=== PATIENT | male | born 2005 | race Caucasian/White ===

== ENCOUNTER 2024-09-18 15:39 | Inpatient (IN) | payer MEDICAID ==
[~2024-09-18] VITALS: Ht 172.7 cm; Wt 56.5 kg
[2024-09-18 17:16] VITALS: BP 128/85; PULSE 82; RESP 16; TEMP 98.1; O2SAT 97
[2024-09-18 17:18] VITALS: RESP 16
[2024-09-18 18:00] VITALS: BP 130/81; PULSE 73; RESP 16; TEMP 98; O2SAT 98
[2024-09-18] MEDS ORDERED: acetaminophen 325mg tablet PO PRN ×2 (19:15)
[2024-09-18] MEDS ORDERED: magnesium sulf-water 4G/100mL 100 ML IV PRN (19:15)
[2024-09-18] MEDS ORDERED: magnesium Cl slow-release 64mg tablet PO PRN (19:15)
[2024-09-18] MEDS ORDERED: potassium Cl 40MEQ/1/2NS 520ml 520 ML IV PRN (19:15)
[2024-09-18] MEDS ORDERED: potassium Cl 20 mEq SR tablet PO PRN ×2 (19:15)
[2024-09-18] MEDS: normal saline 1000ml 1,000 ML IV SCH (19:15)
[2024-09-18] MEDS ORDERED: magnesium sulf-water 2g/50mL 50 ML IV PRN (19:15)
[2024-09-18] MEDS ORDERED: mag hydrox/Alum hydrox/simeth 30ml oral suspension PO PRN (19:15)
[2024-09-18 20:00] VITALS: RESP 16; O2SAT 98
[2024-09-18] MEDS: K and/or MAG REPLACEMENT MC SCH (20:00)
[2024-09-18] MEDS ORDERED: CLON0.2T PO (20:28)
[2024-09-18] MEDS ORDERED: LISD30CA2 PO (20:28)
[2024-09-18] MEDS ORDERED: FLUO10CA28 PO (20:28)
[2024-09-18] MEDS ORDERED: HYDR-3717 PO (20:28)
--- NOTE | 2024-09-18 20:32 | HISTORY AND PHYSICAL-Residence ---
History & Physical Providers to CC Resident Creating Document: DINESH MCDONALD RES ~ History of Present Illness Reason for Admit\Complaint: Abdominal pain History of Present Illness 19 years old male with history of ADHD developmental delay anxiety transferred from [facility] to our hospital suspect of of choledocholithiasis. Patient reported had intermittent abdominal pain within last two months, pain became constant and severe about two nights ago, when he visit [facility]. As the package note from [facility] patient had right upper quadrant abdominal pain the severity was 10/10, sharp nonradiating. Patient also reported associated nausea but denied any fever. During hospitalization patient reported 2 times vomiting which was nonbloody and content food. Denied any constipation diarrhea, changing in urinary habits. Allergies: Uncoded Allergies: Strawberries (Allergy, Severe, 09/18/24) ANAPHYLAXIS: REQUIRES EPI PEN NKDA (Allergy, Unknown, 09/18/24) Past Medical History Past Medical History ADHD Developmental delay Anxiety disorder Past Surgical History Surgical History Comment Noncontributory Family History Family History: Patient reports no known family medical history. Past Social History Smoking: Other (Patient used to vape, quit about eight months ago) Alcohol Use: None Drug Use: None ROS ROS The history of present illness included a review of system, which yielded relevant positives and negatives Exam Vitals: Vital Signs Date Time Temp Pulse Resp B/P (MAP) Pulse Ox O2 Delivery O2 Flow Rate FiO2 09/18/24 17:18 16 Room Air 09/18/24 17:16 98.1 82 128/85 (99) 97 General: General: Awake and Alert, no acute distress. HEENT: Conjunctiva pink, Sclera mildly icteric, Mucus Membranes moist. Neck: Supple without masses and tenderness. Resp: Lungs clear to auscultation bilaterally. Heart: Regular Rate and rhythm, normal S1 and S2 without murmur, rub or gallop. Abdomen: Soft and non tender no organomegaly Extremities: No cyanosis,clubbing or edema. Skin: Warm and Dry. Neurological: Speech is clear, alert, and oriented x 4, no gross neurological deficits Advance Care Planning Advanced Care plannin - 30 Minutes Additional Plan 19 years old male with history of anxiety developmental delay and ADHD transferred from [facility] due to abdominal pain and suspect of choledocholithiasis Suspect of of choledocholithiasis Intermittent abdominal pain which has been getting worse withing last two days Ultrasound of the abdomen from [facility] showed: Finding The common bile duct measured 5.3 mm. Small shadowing echogenic foci are seen in the CBD. Gal lbladder small. Gallbladder wall measures 3.5. No pre cholecystic fluid. Impression: Gallbladder microlithiasis, associated with marginal mural thickness thickening. Coledocholelithiasis. No biliary ductal dilation. CT scan with IV contrast from [facility]: Moderate intrahepatic periportal edema which could be seen with hepatitis, cholangitis, cardiac decompensation. Mild gallbladder wall thickening which may be reactive to and inflamed liver. Non calcified gallstone with acute cholecystitis can not be excluded. No evidence for obstructive uropathy or urinary tract calculi. Normal appendix. Intact gastrointestinal tract Labs from [facility] showed: No leukocytosis WBC 7.6, bilirubin 1.38, ALT 55, AST 75, alkaline phosphatase 78 However Repeated labs in our hospital showed bilirubin 7.5, AST 174, ALT 572, alkaline phosphatase 152 IV fluid 100 mL/hour started, MRCP ordered, Dr. Arciniega on-call surgeon is informed. Other comorbidities ADHD, anxiety disorder developmental delay we will continue home medication as directed Code Status: Full DVT prophylaxis: SCDs Analgesia/sedation: Tylenol, Line/tube: Peripheral GI prophylaxis: None Nutrition: NPO after midnight Prognosis: Fair Disposition: Continue monitoring patient in surgical floor, NPO after midnight Dinesh Mcdonald MD Internal Medicine Resident Date of Service: September 18, 2024 Billing Provider: MCKAY FLORES MD, ELAHE, RES September 18, 2024 20:32
[2024-09-18] MEDS: ondansetron/PF 4mg/2ml inj IV PRN (21:06)
[2024-09-18] MEDS: docusate sod 100mg capsule PO SCH (22:08)
[2024-09-18] MEDS: hydrOXYzine 10 MG tablet PO SCH (22:08)
[2024-09-18] MEDS: cloNIDine 0.1 mg tablet PO SCH (22:08)
[2024-09-18 22:39] LABS: BASOPHILS % (AUTO) 0.6 % (0-1); EOSINOPHILS % (AUTO) 0.4 % (0-6); HEMATOCRIT 46.6 % (42.0-52.0); HEMOGLOBIN 15.9 g/dl (14.0-17.9); LYMPHOCYTES # (AUTO) 0.6 X10'3 (1.1-4.8); LYMPHOCYTES % (AUTO) 8.4 % (21-51); MEAN CORPUSCULAR HEMOGLOBIN 29.1 PG (27.0-31.0); MEAN CORPUSCULAR HGB CONC 34.1 g/dL (33.0-36.5); MEAN CORPUSCULAR VOLUME 85.3 FL (78-98); MEAN PLATELET VOLUME 7.8 FL (7.4-10.4); MONOCYTES # (AUTO) 0.3 X10'3 (0-0.9); MONOCYTES % (AUTO) 3.9 % (2-12); NEUTROPHILS # (AUTO) 6.2 X10'3 (1.8-7.7); NEUTROPHILS % (AUTO) 86.7 % (42-75); PLATELET COUNT 283 X10'3 (140-440); RED BLOOD COUNT 5.46 X10'6 (4.70-6.10); RED CELL DISTRIBUTION WIDTH 13.6 % (11.5-14.5); WHITE BLOOD COUNT 7.1 X10'3 (4.5-11.0)
[2024-09-18 22:56] LABS: ALANINE AMINOTRANSFERASE 572 U/L (12-78); ALBUMIN 4.2 G/DL (3.4-5.0); ALKALINE PHOSPHATASE 152 IU/L (20-180); ANION GAP 7 (8-16); ASPARTATE AMINO TRANSFERASE 174 U/L (10-37); BILIRUBIN,TOTAL 7.5 MG/DL (0.1-1.0); BLOOD UREA NITROGEN 4 MG/DL (7-18); BUN/CREATININE RATIO 4.7 (10.0-20.0); CALCIUM 8.7 MG/DL (8.5-10.1); CHLORIDE 102 MMOL/L (99-107); CREATININE 0.85 MG/DL (0.60-1.10); GLUCOSE 116 MG/DL (70-104); POTASSIUM 3.5 MMOL/L (3.5-5.1); SODIUM 140 MMOL/L (135-145); TOTAL CARBON DIOXIDE 30.7 MMOL/L (24-32); eCRCL 111 ML/MIN; eGFR > 90 ML/MIN
[2024-09-18 22:57] LABS: APTT 29 SECONDS (22-32); INR 1.2 INR; PROTHROMBIN TIME 11.8 SECONDS (9.0-12.0)
[2024-09-18 23:00] VITALS: BP 120/76; PULSE 76; RESP 16; TEMP 97.9; O2SAT 99
[2024-09-18 23:02] LABS: AMYLASE 52 U/L (25-115); LIPASE 30 U/L (16-77); MAGNESIUM 2.2 MG/DL (1.5-2.4); PRO BRAIN NATRIURETIC PEPTIDE 217 PG/ML (0-125)
[2024-09-18 23:05] LABS: ALBUMIN/GLOBULIN RATIO 1.2 (1.1-1.5); TOTAL PROTEIN 7.6 G/DL (6.4-8.2)
[2024-09-19 06:00] VITALS: BP 110/63; PULSE 56; RESP 16; TEMP 97.6; O2SAT 100
[2024-09-19 06:18] LABS: BASOPHILS % (AUTO) 0.4 % (0-1); EOSINOPHILS # (AUTO) 0.1 X10'3 (0-0.9); EOSINOPHILS % (AUTO) 1.4 % (0-6); HEMATOCRIT 39.5 % (42.0-52.0); HEMOGLOBIN 13.7 g/dl (14.0-17.9); LYMPHOCYTES # (AUTO) 1.3 X10'3 (1.1-4.8); MEAN CORPUSCULAR HEMOGLOBIN 29.4 PG (27.0-31.0); MEAN CORPUSCULAR HGB CONC 34.7 g/dL (33.0-36.5); MEAN CORPUSCULAR VOLUME 84.7 FL (78-98); MEAN PLATELET VOLUME 7.9 FL (7.4-10.4); MONOCYTES # (AUTO) 0.5 X10'3 (0-0.9); MONOCYTES % (AUTO) 7.5 % (2-12); NEUTROPHILS # (AUTO) 4.7 X10'3 (1.8-7.7); NEUTROPHILS % (AUTO) 71.7 % (42-75); PLATELET COUNT 247 X10'3 (140-440); RED BLOOD COUNT 4.66 X10'6 (4.70-6.10); RED CELL DISTRIBUTION WIDTH 13.5 % (11.5-14.5); WHITE BLOOD COUNT 6.6 X10'3 (4.5-11.0)
[2024-09-19 06:28] LABS: ALANINE AMINOTRANSFERASE 403 U/L (12-78); ALBUMIN 3.2 G/DL (3.4-5.0); ALKALINE PHOSPHATASE 119 IU/L (20-180); ANION GAP 4 (8-16); ASPARTATE AMINO TRANSFERASE 114 U/L (10-37); BILIRUBIN,TOTAL 5.5 MG/DL (0.1-1.0); BLOOD UREA NITROGEN 4 MG/DL (7-18); BUN/CREATININE RATIO 3.7 (10.0-20.0); CALCIUM 8.6 MG/DL (8.5-10.1); CHLORIDE 106 MMOL/L (99-107); CREATININE 1.07 MG/DL (0.60-1.10); GLUCOSE 97 MG/DL (70-104); POTASSIUM 3.8 MMOL/L (3.5-5.1); SODIUM 140 MMOL/L (135-145); eCRCL 88 ML/MIN; eGFR 88 ML/MIN
[2024-09-19 06:32] LABS: ALBUMIN/GLOBULIN RATIO 1.2 (1.1-1.5); TOTAL PROTEIN 5.8 G/DL (6.4-8.2)
[2024-09-19 06:38] LABS: BILIRUBIN,URINE MODERATE (Neg); CLARITY,URINE CLEAR (Clear); COLOR,URINE AMBER (Yellow); GLUCOSE, URINE 100 mg/dl (Neg); KETONES,URINE 40 mg/dl (Neg); LEUKOCYTE ESTERASE ,URINE NEGATIVE (Neg); NITRITES, URINE NEGATIVE (Neg); OCCULT BLOOD,URINE NEGATIVE (Neg); PROTEIN,URINE NEGATIVE (Neg)
[2024-09-19 06:44] LABS: UA COLLECTION TYPE CLN CATCH MIDSTREAM
[2024-09-19] MEDS: FLUoxetine 10mg capsule PO SCH (08:11)
[2024-09-19] MEDS: lisdexamfetamine dimesylate 10mg capsule PO SCH (08:11)
--- NOTE | 2024-09-19 10:23 | PROGRESS NOTE ---
Progress Note Dictate Providers to CC CC: BESSIE SEWELL MD ~ Progress Note: Patient transferred here from [facility] with suspected choledocholithiasis Significant increase in bilirubin on admission greater than 7.0 Decrease this morning Transaminitis Normal alkaline phosphatase Ultrasound suspicious for possible shadowing in the common bile duct Patient jaundiced Awaiting MRCP Full consult to follow Antibiotic Ordered?: N/A Objective Vitals Vital Signs Date Time Temp Pulse Resp B/P (MAP) Pulse Ox O2 Delivery O2 Flow Rate FiO2 09/19/24 06:00 97.6 56 16 110/63 (79) 100 Room Air Lab Results: 09/19/24 0528 09/19/24 0528 Coagulation Studies Laboratory Tests Test 09/18/24 22:20 Prothrombin Time 11.8 SECONDS (9.0-12.0) INR International Normalized Ratio 1.2 INR Activated Partial Thromboplast Time 29 SECONDS (22-32) Coagulation Comments BESSIE SEWELL MD Sep 19, 2024 10:23
[2024-09-19] MEDS: piperacillin/tazo 3.375gm/50ml 50 ML IV SCH (10:35)
[2024-09-19 11:00] VITALS: BP 126/76; PULSE 67; RESP 16; TEMP 98.3; O2SAT 96
--- NOTE | 2024-09-19 11:38 | PROGRESS NOTE ---
Daily Progress Note Providers to CC ~ Antibiotic Timeout Antibiotic Ordered?: Yes Subjective No acute events overnight. Patient examined at bedside. No new complaints, not in acute distress. Patient reports upper quadrant abdominal pain. No longer experiencing n/v. Patient denies chest pain, sob, palpitations. Vss, labs notable for elevated and downtrending t.bili, AST/ALT, wnl ALP. Lipase wnl. MRCP reveals suspected choledocholithiasis with questionable 2 mm filling defect of distal common bile duct, also cholelithiasis with small pericholecystic fluid. Consulted GI Dr. Serrano. Objective Vital Signs Date Time Temp Pulse Resp B/P (MAP) Pulse Ox O2 Delivery O2 Flow Rate FiO2 09/19/24 08:00 Room Air 09/19/24 06:00 97.6 56 16 110/63 (79) 100 Result Diagram: 09/19/2452709/19/24527 Physical Exam General: Generalized weakness, A&Ox 3, NAD HEENT: Normocephalic, PERRLA Neck: Supple, trachea midline, no JVD Chest: Clear to auscultation bilaterally Cardiovascular: RRR, S1&S2 GI: Tenderness in medial upper abdomen with palpation; negative rebound tenderness Extremities: No cyanosis/clubbing/or edema PONY RIDE ATTENDANT: CN II-XII intact, no focal deficits Musculoskeletal: No paraspinal muscle tenderness, no muscle spasm Skin: Warm and intact Coagulation Studies Laboratory Tests Test 09/18/24 22:20 Prothrombin Time 11.8 SECONDS (9.0-12.0) INR International Normalized Ratio 1.2 INR Activated Partial Thromboplast Time 29 SECONDS (22-32) Coagulation Comments Problem\Assessment\Plan 19-year-old male with history of anxiety, developmental delay, and ADHD transferred from [facility] due to abdominal pain x 2 days and suspect of choledocholithiasis # Suspect choledocholithiasis Ultrasound of the abdomen from [place] showed: Finding The common bile duct measured 5.3 mm. Small shadowing echogenic foci are seen in the CBD. Gallbladder small. Gallbladder wall measures 3.5. No pre cholecystic fluid. Impression: Gallbladder microlithiasis, associated with marginal mural thickness thickening. Coledocholelithiasis. No biliary ductal dilation. CT scan with IV contrast from [place]: Moderate intrahepatic periportal edema which could be seen with hepatitis, cholangitis, cardiac decompensation. Mild gallbladder wall thickening which may be reactive to and inflamed liver. Non calcified gallstone with acute cholecystitis can not be excluded. No evidence for obstructive uropathy or urinary tract calculi. Normal appendix. Intact gastrointestinal tract Labs from [place] showed: No leukocytosis WBC 7.6, bilirubin 1.38, ALT 55, AST 75, alkaline phosphatase 78 However Repeated labs in our hospital showed bilirubin 7.5, AST 174, ALT 572, alkaline phosphatase 152 -6/1: elevated and downtrending t.bili, AST/ALT, wnl ALP. Lipase wnl. Continue IVF, start Zosyn, MRCP reveals suspected choledocholithiasis with questionable 2 mm filling defect of distal common bile duct, also cholelithiasis with small pericholecystic fluid. Consulted GI Dr. Serrano. # ADHD, anxiety disorder developmental delay -pending med rec Code Status: Full Code DVT/VTE prophylaxis: SCDs Date of Service: Sep 19, 2024 Billing Provider: JENI IBARRA Common Visit Codes: [id number] INP/OBS CARE(HIGH) JENI IBARRA Sep 19, 2024 11:38
--- NOTE | 2024-09-19 15:18 | RADIOLOGY REPORT ---
CLINICAL INFORMATION: Abdominal pain. TECHNIQUE: Multisequence multiplanar MRI images of the abdomen were obtained without IV contrast. [facility] T2-weighted MRCP images were obtained. 3D MRCP images were created. COMPARISON: None FINDINGS: Small gallstones visualized in the gallbladder. Suspected small amount of pericholecystic f luid. No intrahepatic biliary ductal dilatation. Common bile duct measures up to 7 mm in diameter. Qu estionable very small filling defect in the distal common bile duct just proximal to the ampulla, can not exclude small 2 mm gallstone. No evidence of stricture. Liver, spleen, pancreas, adrenal glands, and kidneys appear grossly unremarkable on limited noncontrast enhanced images. IMPRESSION: 1. Cholelithiasis with small amount of pericholecystic fluid. Acute cholecystitis can not be exclude d in the appropriate clinical setting. 2. Common bile duct measures at the upper limits of normal. Questionable 2 mm filling defect of the distal common bile duct. Possible choledocholithiasis. 3. Additional findings as described above.
[2024-09-19 18:50] VITALS: BP 136/82; PULSE 70; RESP 16; TEMP 98; O2SAT 99
[2024-09-19] MEDS: magnesium hydroxide 30ml (MOM) UD suspension PO PRN (20:59)
[2024-09-19 22:00] VITALS: BP 127/79; PULSE 57; RESP 16; TEMP 97.8; O2SAT 97
[2024-09-20 06:00] VITALS: BP 119/74; PULSE 59; RESP 14; TEMP 96.9; O2SAT 94
[2024-09-20 06:04] LABS: BASOPHILS % (AUTO) 0.7 % (0-1); EOSINOPHILS # (AUTO) 0.1 X10'3 (0-0.9); EOSINOPHILS % (AUTO) 2.2 % (0-6); HEMATOCRIT 40.4 % (42.0-52.0); HEMOGLOBIN 13.7 g/dl (14.0-17.9); LYMPHOCYTES # (AUTO) 1.5 X10'3 (1.1-4.8); LYMPHOCYTES % (AUTO) 24.7 % (21-51); MEAN CORPUSCULAR HEMOGLOBIN 28.8 PG (27.0-31.0); MEAN CORPUSCULAR VOLUME 84.9 FL (78-98); MEAN PLATELET VOLUME 8.4 FL (7.4-10.4); MONOCYTES # (AUTO) 0.4 X10'3 (0-0.9); MONOCYTES % (AUTO) 7.3 % (2-12); NEUTROPHILS # (AUTO) 3.8 X10'3 (1.8-7.7); NEUTROPHILS % (AUTO) 65.1 % (42-75); PLATELET COUNT 239 X10'3 (140-440); RED BLOOD COUNT 4.76 X10'6 (4.70-6.10); RED CELL DISTRIBUTION WIDTH 13.7 % (11.5-14.5); WHITE BLOOD COUNT 5.9 X10'3 (4.5-11.0)
--- NOTE | 2024-09-20 06:16 | PROGRESS NOTE ---
Progress Note Dictate Providers to CC CC: BESSIE SEWELL MD ~ Progress Note: Given the patients acute, painful jaundice and questionable filling defect in the common bile duct: -recommend GI consultation for possible diagnostic/therapeutic ERCP prior to cholecystectomy Antibiotic Ordered?: N/A Objective Vitals Vital Signs Date Time Temp Pulse Resp B/P (MAP) Pulse Ox O2 Delivery O2 Flow Rate FiO2 09/19/24 18:50 98.0 70 16 136/82 (100) 99 Room Air 09/19/24 18:50 0 21 Lab Results: 09/20/24 0504 09/19/24 0528 Coagulation Studies Laboratory Tests Test 09/18/24 22:20 Prothrombin Time 11.8 SECONDS (9.0-12.0) INR International Normalized Ratio 1.2 INR Activated Partial Thromboplast Time 29 SECONDS (22-32) Coagulation Comments BESSIE SEWELL MD Sep 20, 2024 06:16
[2024-09-20 06:21] LABS: ALANINE AMINOTRANSFERASE 301 U/L (12-78); ALBUMIN 3.2 G/DL (3.4-5.0); ALBUMIN/GLOBULIN RATIO 1.2 (1.1-1.5); ALKALINE PHOSPHATASE 115 IU/L (20-180); ANION GAP 8 (8-16); ASPARTATE AMINO TRANSFERASE 69 U/L (10-37); BILIRUBIN,TOTAL 3.3 MG/DL (0.1-1.0); BLOOD UREA NITROGEN 8 MG/DL (7-18); BUN/CREATININE RATIO 7.6 (10.0-20.0); CALCIUM 8.4 MG/DL (8.5-10.1); CHLORIDE 105 MMOL/L (99-107); CREATININE 1.05 MG/DL (0.60-1.10); GLUCOSE 64 MG/DL (70-104); MAGNESIUM 1.9 MG/DL (1.5-2.4); SODIUM 141 MMOL/L (135-145); TOTAL PROTEIN 5.8 G/DL (6.4-8.2); eCRCL 90 ML/MIN; eGFR 90 ML/MIN
[2024-09-20 08:05] VITALS: RESP 18
--- NOTE | 2024-09-20 09:09 | CONSULTATION REPORT - RESIDENT ---
Consult Providers to CC Resident Creating Document: JOSE FLETCHER CC: DOUG SERRANO MD History of Present Illness Reason for Admit\Complaint: Abdominal pain History of Present Illness Patient is a 19-year-old male with past medical history of autism, bipolar disorder, schizophrenia and ADHD who was brought to the ED on 09/18/2024 transferred from [facility] due to abdominal pain. Patient reports that he has been experiencing intermittent abdominal pain for about 8 weeks, he describes the pain as colicky, 10/10 in intensity, happening 2 times a day, 4 or 5 days in a week, located in lower quadrants, nonradiating, partially improved with unspecified pain meds and OTC gas relief meds. He also reports some nausea, and some episodes of loose stools. He denies fevers, chills, vomiting, bloody stools. On admission, patient was found to have elevated bilirubin and LFTs, with normal ALP. Patient underwent MRCP yesterday which showed possible choledocholithiasis and cholelithiasis. Dr. Arciniega was consulted who recommended ERCP prior to cholecystectomy. Allergies: Uncoded Allergies: Strawberries (Allergy, Severe, 09/18/24) ANAPHYLAXIS: REQUIRES EPI PEN NKDA (Allergy, Unknown, 09/18/24) Home Medications Home Medications Active Reported Atarax* (Hydroxyzine HCl) 10 Mg Tablet 1 Tab PO HS Prozac (Fluoxetine HCl) 10 Mg Capsule 1 Cap PO DAILY Clonidine HCl 0.2 Mg Tablet 1 Tab PO HS Vyvanse (Lisdexamfetamine Dimesylate) 30 Mg Capsule 1 Cap PO QAM 5 Days Past Medical History Past Medical History Autism, bipolar disorder, schizophrenia and ADHD Past Surgical History Surgical History Comment None Family History Family History: Patient reports no known family medical history. Past Social History Social History Comment Used to vape, quit 2 weeks ago Denies alcohol, recreational drugs Lives with his aunt. His mother in 2022 ROS ROS All systems were reviewed and found negative except for pertinent positives mentioned in HPI Exam Vitals: Vital Signs Date Time Temp Pulse Resp B/P (MAP) Pulse Ox O2 Delivery O2 Flow Rate FiO2 09/19/24 22:00 97.8 57 16 127/79 (95) 97 Nasal Cannula 2.0 21 General: General: awake, alert oriented to place, time, and person, cooperative with the exam HEENT: mild pallor present, no significant icterus, moist mucous membranes Neck: No masses and tenderness Resp: Unlabored. Lungs clear to auscultation bilaterally. Heart: Regular Rate and rhythm, normal S1 and S2 without murmur, rub or gallop Abdomen: Soft and non tender no organomegaly, no guarding and rigidity, bowel sounds present Neuro: No weakness in the upper and lower limb muscles, power of the muscles 5/5 bilateral upper and lower muscles, knee reflex present bilaterally. Cranial nerves intact Extremities: No cyanosis,clubbing or edema Skin: Warm and Dry. No lesions Diagnostic Data Last Recorded Lab Results: 09/20/24 0504 09/20/24 0504 Diagnostic Data: Laboratory Tests Test 09/18/24 22:20 Prothrombin Time 11.8 SECONDS (9.0-12.0) INR International Normalized Ratio 1.2 INR Activated Partial Thromboplast Time 29 SECONDS (22-32) Coagulation Comments Additional Plan Gastroenterology consult: Patient is a 19-year-old male with past medical history of autism, bipolar disorder, schizophrenia and ADHD who was brought to the ED on 09/18/2024 transferred from [facility] due to abdominal pain. Patient will undergo cholecystectomy tomorrow by Dr. Arciniega. GI has been consulted for ERCP. Abdominal pain, resolved Choledocholithiasis Cholelithiasis Currently abdominal pain has resolved Patient is currently not significantly jaundiced LFTs trending down ALP has been normal throughout hospital stay On Zosyn, day 2 IV NS at 100 cc/hour Patient discussed in detail with Dr. Serrano. As patient likely passed the stone, Will monitor his bilirubin. If < 2 in a.m. we will defer ERCP. However if still >3 we will perform ERCP Otherwise ok to proceed with Cholecystectomy Keep NPO after midnight Other comorbidities include: Autism Bipolar disorder Schizophrenia ADHD Home medications include: Clonidine, fluoxetine, hydroxyzine, Vyvanse Management per hospitalist team Code Status: Full code Nutrition: NPO after midnight Prognosis: Guarded Disposition: Continue care in surgical unit. Possible ERCP in a.m. depending on bilirubin. Otherwise ok to proceed with cholecystectomy Jose Law MD Internal Medicine Resident PGY-1 Date of Service: Sep 20, 2024 Billing Provider: DHANUKA,JOSE REEVES MD Sep 20, 2024 09:09
[2024-09-20 11:00] VITALS: BP 126/67; PULSE 79; RESP 15; TEMP 98.7; O2SAT 98
--- NOTE | 2024-09-20 13:11 | PROGRESS NOTE ---
Daily Progress Note Providers to CC ~ Antibiotic Timeout Antibiotic Ordered?: Yes Subjective No acute events overnight. Patient examined at bedside. No new complaints, not in acute distress. Patient reports abdominal pain that is controlled but denies chest pain, sob, palpitations, n/v/d. Vss, labs t.bili downtrending, ERCP not warranted at this time per GI Dr. Serrano. OR tomorrow for cholecystectomy planned. If t.bili uptrends again, Dr. Serrano will do ERCP. Objective Vital Signs Date Time Temp Pulse Resp B/P (MAP) Pulse Ox O2 Delivery O2 Flow Rate FiO2 09/20/24 08:05 18 Room Air 0.0 09/20/24 06:00 96.9 59 119/74 (89) 94 09/19/24 22:00 21 Result Diagram: 09/20/24 0504 09/20/24 0504 Physical Exam General: Generalized weakness, A&Ox 3, NAD HEENT: Normocephalic, PERRLA Neck: Supple, trachea midline, no JVD Chest: Clear to auscultation bilaterally Cardiovascular: RRR, S1&S2 GI: Tenderness in medial upper abdomen with palpation; negative rebound tenderness Extremities: No cyanosis/clubbing/or edema CADDY/CADDIE SUPERVISOR: CN II-XII intact, no focal deficits Musculoskeletal: No paraspinal muscle tenderness, no muscle spasm Skin: Warm and intact Coagulation Studies Laboratory Tests Test 09/18/24 22:20 Prothrombin Time 11.8 SECONDS (9.0-12.0) INR International Normalized Ratio 1.2 INR Activated Partial Thromboplast Time 29 SECONDS (22-32) Coagulation Comments Problem\Assessment\Plan 19-year-old male with history of anxiety, developmental delay, and ADHD transferred from [facility] due to abdominal pain x 2 days and suspect of choledocholithiasis # Suspect choledocholithiasis Ultrasound of the abdomen from [address] showed: Finding The common bile duct measured 5.3 mm. Small shadowing echogenic foci are seen in the CBD. Gallbladder small. Gallbladder wall measures 3.5. No pre cholecystic fluid. Impression: Gallbladder microlithiasis, associated with marginal mural thickness thickening. Coledocholelithiasis. No biliary ductal dilation. CT scan with IV contrast from [address]: Moderate intrahepatic periportal edema which could be seen with hepatitis, cholangitis, cardiac decompensation. Mild gallbladder wall thickening which may be reactive to and inflamed liver. Non calcified gallstone with acute cholecystitis can not be excluded. No evidence for obstructive uropathy or urinary tract calculi. Normal appendix. Intact gastrointestinal tract Labs from [address] showed: No leukocytosis WBC 7.6, bilirubin 1.38, ALT 55, AST 75, alkaline phosphatase 78 However Repeated labs in our hospital showed bilirubin 7.5, AST 174, ALT 572, alkaline phosphatase 152 -09/19: elevated and downtrending t.bili, AST/ALT, wnl ALP. Lipase wnl. Continue IVF, start Zosyn, MRCP reveals suspected choledocholithiasis with questionable 2 mm filling defect of distal common bile duct, also cholelithiasis with small pericholecystic fluid. Consulted GI Dr. Serrano. -09/20: t.bili downtrending, ERCP not warranted at this time. OR tomorrow for cholecystectomy planned. If t.bili uptrends again, Dr. Serrano will do ERCP. # ADHD, anxiety disorder developmental delay -pending med rec Code Status: Full Code DVT/VTE prophylaxis: SCDs Date of Service: Sep 20, 2024 Billing Provider: JENI IBARRA Common Visit Codes: [id number] INP/OBS CARE(HIGH) JENI IBARRA Sep 20, 2024 13:11
[2024-09-20 18:00] VITALS: BP 132/85; PULSE 95; RESP 17; TEMP 98.3; O2SAT 98
[2024-09-20 20:00] VITALS: RESP 16; O2SAT 99
[2024-09-20 22:00] VITALS: BP 125/77; PULSE 83; RESP 18; TEMP 97.9; O2SAT 97
[2024-09-21] VITALS (30 sets, daily range): BP systolic 102–169; BP diastolic 70–122; PULSE 52–116; RESP 11–19; TEMP 97.7–98.5; O2SAT 92–100
[2024-09-21 04:57] LABS: BASOPHILS % (AUTO) 0.5 % (0-1); EOSINOPHILS # (AUTO) 0.1 X10'3 (0-0.9); EOSINOPHILS % (AUTO) 1.6 % (0-6); HEMATOCRIT 41.9 % (42.0-52.0); HEMOGLOBIN 14.3 g/dl (14.0-17.9); LYMPHOCYTES # (AUTO) 1.9 X10'3 (1.1-4.8); LYMPHOCYTES % (AUTO) 23.1 % (21-51); MEAN CORPUSCULAR HEMOGLOBIN 29.3 PG (27.0-31.0); MEAN CORPUSCULAR HGB CONC 34.2 g/dL (33.0-36.5); MEAN CORPUSCULAR VOLUME 85.5 FL (78-98); MEAN PLATELET VOLUME 8.1 FL (7.4-10.4); MONOCYTES # (AUTO) 0.6 X10'3 (0-0.9); MONOCYTES % (AUTO) 7.6 % (2-12); NEUTROPHILS # (AUTO) 5.4 X10'3 (1.8-7.7); NEUTROPHILS % (AUTO) 67.2 % (42-75); PLATELET COUNT 273 X10'3 (140-440); RED CELL DISTRIBUTION WIDTH 13.9 % (11.5-14.5); WHITE BLOOD COUNT 8.1 X10'3 (4.5-11.0)
[2024-09-21 05:20] LABS: ALANINE AMINOTRANSFERASE 270 U/L (12-78); ALBUMIN 3.4 G/DL (3.4-5.0); ALBUMIN/GLOBULIN RATIO 1.2 (1.1-1.5); ALKALINE PHOSPHATASE 114 IU/L (20-180); ANION GAP 8 (8-16); ASPARTATE AMINO TRANSFERASE 66 U/L (10-37); BILIRUBIN,TOTAL 2.5 MG/DL (0.1-1.0); BLOOD UREA NITROGEN 7 MG/DL (7-18); BUN/CREATININE RATIO 6.1 (10.0-20.0); CALCIUM 8.6 MG/DL (8.5-10.1); CHLORIDE 105 MMOL/L (99-107); CREATININE 1.15 MG/DL (0.60-1.10); GLUCOSE 86 MG/DL (70-104); MAGNESIUM 1.9 MG/DL (1.5-2.4); POTASSIUM 3.6 MMOL/L (3.5-5.1); SODIUM 141 MMOL/L (135-145); TOTAL CARBON DIOXIDE 27.7 MMOL/L (24-32); TOTAL PROTEIN 6.2 G/DL (6.4-8.2); eCRCL 82 ML/MIN; eGFR 81 ML/MIN
--- NOTE | 2024-09-21 06:55 | CONSULTATION REPORT ---
History of Present Illness Providers to CC CC: BESSIE SEWELL MD ~ Reason for Admit\Admit Dx: Abdominal pain History of Present Illness Otherwise healthy 19 y/o male transferred with suspected choledocolithiasis. Hyperbilirubinemia resolving MRCP showed questionable very small filling defect Gastroenterology consultation, clinical exam and laboratory studies consistent with passed stone Interval cholecystectomy indicated Allergies: Uncoded Allergies: Strawberries (Allergy, Severe, 09/18/24) ANAPHYLAXIS: REQUIRES EPI PEN NKDA (Allergy, Unknown, 09/18/24) Home Medications Home Medications Active Reported Atarax* (Hydroxyzine HCl) 10 Mg Tablet 1 Tab PO HS Prozac (Fluoxetine HCl) 10 Mg Capsule 1 Cap PO DAILY Clonidine HCl 0.2 Mg Tablet 1 Tab PO HS Vyvanse (Lisdexamfetamine Dimesylate) 30 Mg Capsule 1 Cap PO QAM 5 Days Past Medical History Medical History Comment ADHD Past Surgical History Surgical History Comment None Past Family History Family History Comment Noncontributory Family History: Patient reports no known family medical history. Past Social History Social History Comment Not applicable Health Maintenance Health Maintenance Not applicable Physical Exam Last Vital Signs Recorded: RN Vital Signs have been reviewed: Yes, Temperature: 97.9, Source: Temporal, Heart Rate: 83, Respiratory Rate: 18, BP: 125/77, Pulse Oximetry: 99, Weight: 56.500 General Appearance: alert, WD/WN, no apparent distress EENT: PERRL/EOMI, scleral icterus (R), scleral icterus (L) Neck: full range of motion, supple Respiratory: lungs clear Cardiovascular: regular rate, rhythm Gastrointestinal: normal palpation, non-tender; No: mass Genitalia: normal, no hernias Rectal: deferred Back: no CVA tenderness Extremities: non-tender, normal inspection, no edema Neurologic: oriented x4 Psychiatric: normal mood/affect; No: anxiety Skin: normal color, warm/dry Lymphatic: no adenopathy Review of Systems ROS ROS Comments: Reviewed and currently negative Results Diagram Lab Result Diagram: 09/21/2442009/21/24420 Assessment/Plan Problems/Diagnosis: (1) Hyperbilirubinemia Assessment & Plan: Appears related to transient choledocolithiasis Cholelithiasis Interval cholecystectomy indicated Risks and benefits reviewed Plan for surgery today Plan to d/c after surgery BESSIE SEWELL MD Sep 21, 2024 06:55
[2024-09-21] MEDS: INDOCYANINE GREEN 25 MG/10 ML VIAL IV ONE (09:02)
--- NOTE | 2024-09-21 09:35 | PROGRESS NOTE- Residence ---
Progress Note - Resident Providers to CC Resident Creating Document: LIZBETH MENDOZAMATTJOSE ANGEL CC: DOUG SERRANO MD ~ Antibiotic Timeout Antibiotic Ordered?: Yes Subjective Patient was examined at bedside today. He is in good spirits, denies any abdominal pain, nausea, vomiting or diarrhea. He is ready to go to the OR today Objective Vital Signs Date Time Temp Pulse Resp B/P (MAP) Pulse Ox O2 Delivery O2 Flow Rate FiO2 09/21/24 06:34 99 Room Air* 0 21 09/21/24 06:00 97.7 64 16 102/70 (81) Result Diagram: 09/21/24 0421 09/21/24 0421 General: awake, alert oriented to place, time, and person, cooperative with the exam HEENT: mild pallor present, no significant icterus, moist mucous membranes Neck: No masses and tenderness Resp: Unlabored. Lungs clear to auscultation bilaterally. Endovascular: Regular Rate and rhythm, normal S1 and S2 without murmur, rub or gallop Abdomen: Soft and non tender no organomegaly, no guarding and rigidity, bowel sounds present Neuro: No weakness in the upper and lower limb muscles, power of the muscles 5/5 bilateral upper and lower muscles, knee reflex present bilaterally. Cranial nerves intact Extremities: No cyanosis,clubbing or edema Skin: Warm and Dry. No lesions Coagulation Studies Laboratory Tests Test 09/18/24 22:20 Prothrombin Time 11.8 SECONDS (9.0-12.0) INR International Normalized Ratio 1.2 INR Activated Partial Thromboplast Time 29 SECONDS (22-32) Coagulation Comments Plan Plan Gastroenterology progress note: Patient is a 19-year-old male with past medical history of autism, bipolar disorder, schizophrenia and ADHD who was brought to the ED on 09/18/2024 transferred from [facility] due to abdominal pain. Patient will undergo cholecystectomy tomorrow by Dr. Arciniega. GI has been consulted for possible ERCP. Abdominal pain, resolved Choledocholithiasis, resolved Cholelithiasis Currently abdominal pain has resolved Patient is currently not significantly jaundiced LFTs continue to trend down ALP has been normal throughout hospital stay On Zosyn, day 3 IV NS at 100 cc/hour Patient discussed in detail with Dr. Serrano. As patient likely passed the stone and bilirubin 2.5 today, will not perform ERCP. Okay to proceed with cholecystectomy today Other comorbidities include: Autism Bipolar disorder Schizophrenia ADHD Home medications include: Clonidine, fluoxetine, hydroxyzine, Vyvanse Management per hospitalist team Code Status: Full code Nutrition: NPO Prognosis: Guarded Disposition: Continue care in surgical unit. Cholecystectomy by Dr. Arciniega today Jose Duarte MD Internal Medicine Resident PGY-1 Date of Service: Sep 21, 2024 Billing Provider: DOUG SERRANO MD, LEONARDO LUIS Sep 21, 2024 09:35
[2024-09-21] MEDS ORDERED: LIDOcaine 1% 30ml preserv. free vial ONE (10:48)
[2024-09-21] MEDS ORDERED: BUPIVAcaine 2.5mg/ml inj 50ml vial (contains preservative) ONE (10:48)
[2024-09-21] MEDS ORDERED: HYDROmorphone/PF 0.2 MG/ML SYRINGE IV PRN (12:35)
[2024-09-21] MEDS ORDERED: proCHLORperazine 10 MG/2 ml inj IV PRN (12:35)
[2024-09-21] MEDS ORDERED: meperidine/PF 25mg/ml syringe IV PRN (12:35)
[2024-09-21] MEDS ORDERED: morphine 2 MG/ML inj. syringe IV PRN (12:35)
[2024-09-21] MEDS ORDERED: ondansetron/PF 4mg/2ml inj IV PRN (12:35)
[2024-09-21] MEDS ORDERED: midazolam 1 mg/ML 2ml injection ONE (12:43)
[2024-09-21] MEDS ORDERED: dexamethasone sod phosphate 4mg/ml inj. ONE (12:55)
[2024-09-21] MEDS ORDERED: fentaNYL /PF 50mcg/ml 5ml ampule ONE (12:55)
[2024-09-21] MEDS ORDERED: LIDOcaine 2% (20mg/ml) 5ml vial ONE (12:55)
[2024-09-21] MEDS ORDERED: ondansetron/PF 4mg/2ml inj ONE (12:55)
[2024-09-21] MEDS ORDERED: rocuronium 10mg/ml inj IV ONE (12:55)
[2024-09-21] MEDS ORDERED: propofol inj 20 ML IV ONE (12:55)
[2024-09-21] MEDS: BUPIVAcaine/PF 2.5 mg/ml (0.25%) 30ml vial IJ ONE (13:00)
[2024-09-21] MEDS ORDERED: sevoflurane 250ml liquid IH ONE (13:08)
[2024-09-21] MEDS ORDERED: HYDROcodone/acetaminophen 5mg/325mg tablet PO PRN (13:50)
--- NOTE | 2024-09-21 13:55 | OPERATIVE REPORT ---
Operative Report Providers to CC CC: HERBIE SEWELL MD ~ Date of Procedure: Sep 21, 2024 Pre-Operative Diagnosis: Obstructive jaundice, choledocholithiasis Post-Operative Diagnosis SAME as PRE-Op Procedure Performed Robotic assisted, laparoscopic cholecystectomy Surgeon: Herbie Sewell MD FACS Busboy None Anesthesiologist: Obinna James Type of Anesthesia: General Findings: Edematous gallbladder Critical view of safety obtained Wound class II Complications None Prosthetics\Implants used: None Estimated Blood Loss: Minimal Specimen Removed: Gallbladder Description of Procedure: Patient was brought to the operating room and identified by the nursing staff and the attending physician. Patient was placed supine and general anesthesia was induced. A supraumbilical, midline incision was made, long enough to accommodate a 12 mm Maldonado port. Maldonado technique was used to gain entry into the abdomen. Stay sutures were placed in the Maldonado port anchored to the fascia. Abdomen was insufflated without incident. Laparoscope was inserted and the abdomen surveyed. Secondary, 8.5 mm robotic trochars were placed in the left upper quadrant and right lateral abdomen. Robotic arm was docked to the patient. Robotic instruments were guided intra- abdominally under laparoscopic visualization. Gallbladder was readily identified. It did appear somewhat edematous. Fundus of the gallbladder was grasped and retracted over the dome of the liver. Infundibulum was retracted towards the right lower quadrant. Firefly technology was used to obtain a fluorescent cholangiogram and visualize the pertinent anatomy. Cystic duct was clearly visualized at its junction with the common bile duct, however, it is pathway to the gallbladder was obscured. The cystic artery appeared to be on the anterior aspect of the gallbladder anterior to the cystic duct. Peritoneum overlying the triangle was incised with hook electrocautery. This allowed for circumferential dissection of the cystic duct and artery. The cystic duct made an inverted V, looping trajectory before entering the gallbladder. I was able to take down adhesions and straightened this out. Critical view of safety was obtained. Duct and artery were then clipped with hemo-lock clips and both structures divided. Gallbladder was retracted laterally and dissected out of the gallbladder fossa. Gallbladder was set aside and fluorescent cholangiogram of the gallbladder fossa was used to confirm no evidence of bile leak. Gallbladder was placed in a laparoscopic retrieval bag. Secondary trochars were removed and the abdomen allowed to deflate. Maldonado port was removed with the specimen in its retrieval bag. Fascia at the umbilical port site was closed with 0 Vicryl sutures. Skin was closed with 4-0 Monocryl sutures in a subcuticular fashion About 40 cc of local anesthetic was used during the case. Sterile dressings were applied. Patient was awakened and taken to the postanesthesia care unit in stable condition. Counts repoted as correct: Yes HERBIE SEWELL MD Sep 21, 2024 13:55
[2024-09-21] MEDS: ringers solution, lacted 1,000 ML IV SCH (14:18)
[2024-09-21] MEDS: acetaminophen 1,000mg/100ml IV 100 ML IV PRN (14:18)
[2024-09-21] MEDS: hydrALAZINE 20mg/ml inj. IV PRN (14:45)
[2024-09-21] MEDS: HYDROmorphone/PF 0.2 MG/ML SYRINGE IV PRN (15:08)
[2024-09-21] MEDS: labetalol 20mg/4ml (5mg/ml) syringe IV PRN (15:19)
[2024-09-21] MEDS: morphine 4 MG/ML inj SYRINge IV PRN (15:29)
[2024-09-21] MEDS: HYDROcodone/acetaminophen 10/325mg tab PO PRN (20:29)
--- NOTE | 2024-09-21 21:37 | PROGRESS NOTE ---
Daily Progress Note Providers to CC ~ Antibiotic Timeout Antibiotic Ordered?: Yes Subjective I saw the patient postop status post robotic laparoscopic cholecystectomy the patient is on a clear liquid diet in his please he can eat anticipate the patient to be discharged in 1-2 days Objective Vital Signs Date Time Temp Pulse Resp B/P (MAP) Pulse Ox O2 Delivery O2 Flow Rate FiO2 09/21/24 20:29 18 09/21/24 17:25 113 163/104 (123) 92 09/21/24 16:25 Room Air 09/21/24 16:10 98.0 09/21/24 16:00 0.0 09/21/24 08:00 21 Result Diagram: 09/21/24 0421 09/21/24 0421 Gen. No acute distress alert and oriented 4 Lungs clear to ascultation bilaterally, no wheezes rales or rhonchi appreciated Heart normal sinus rhythm no murmurs rubs or clicks noted Abdomen soft nontender bowel sounds are normoactive Lower extremities no clubbing cyanosis, nor edema appreciated bilaterally Coagulation Studies Laboratory Tests Test 09/18/24 22:20 Prothrombin Time 11.8 SECONDS (9.0-12.0) INR International Normalized Ratio 1.2 INR Activated Partial Thromboplast Time 29 SECONDS (22-32) Coagulation Comments Problem\Assessment\Plan 19-year-old male with history of anxiety, developmental delay, and ADHD transferred from [facility] due to abdominal pain x 2 days and suspect of choledocholithiasis # Suspect choledocholithiasis Ultrasound of the abdomen from [place] showed: Finding The common bile duct measured 5.3 mm. Small shadowing echogenic foci are seen in the CBD. Gallbladder small. Gallbladder wall measures 3.5. No pre cholecystic fluid. Impression: Gallbladder microlithiasis, associated with marginal mural thickness thickening. Coledocholelithiasis. No biliary ductal dilation. CT scan with IV contrast from [place]: Moderate intrahepatic periportal edema which could be seen with hepatitis, cholangitis, cardiac decompensation. Mild gallbladder wall thickening which may be reactive to and inflamed liver. Non calcified gallstone with acute cholecystitis can not be excluded. No evidence for obstructive uropathy or urinary tract calculi. Normal appendix. Intact gastrointestinal tract Labs from [place] showed: No leukocytosis WBC 7.6, bilirubin 1.38, ALT 55, AST 75, alkaline phosphatase 78 However Repeated labs in our hospital showed bilirubin 7.5, AST 174, ALT 572, alkaline phosphatase 152 -09/19: elevated and downtrending t.bili, AST/ALT, wnl ALP. Lipase wnl. Continue IVF, start Zosyn, MRCP reveals suspected choledocholithiasis with questionable 2 mm filling defect of distal common bile duct, also cholelithiasis with small pericholecystic fluid. Consulted GI Dr. Serrano. -09/20: t.bili downtrending, ERCP not warranted at this time. OR tomorrow for cholecystectomy planned. If t.bili uptrends again, Dr. Serrano will do ERCP. -09/20 liver function tests and bilirubin are downtrending- status post robotic laparoscopic cholecystectomy today with Dr. Arciniega on a clear liquid diet # ADHD, anxiety disorder developmental delay -pending med rec Code Status: Full Code DVT/VTE prophylaxis: SCDs Disposition: Discharge home in 1-2 days Date of Service: Sep 21, 2024 Billing Provider: SANJUANA MARTINEZ DO Common Visit Codes: [id number] INP/OBS CARE(HIGH) SANJUANA MARTINEZ DO Sep 21, 2024 21:37
[2024-09-21] MEDS: HYDROmorphone inj. 0.5 MG/0.5 ML DISP.SYRIN IV PRN (23:21)
[2024-09-22 04:50] LABS: BASOPHILS % (AUTO) 0.4 % (0-1); EOSINOPHILS % (AUTO) 0.1 % (0-6); HEMATOCRIT 39.9 % (42.0-52.0); HEMOGLOBIN 13.8 g/dl (14.0-17.9); LYMPHOCYTES # (AUTO) 1.1 X10'3 (1.1-4.8); LYMPHOCYTES % (AUTO) 8.3 % (21-51); MEAN CORPUSCULAR HEMOGLOBIN 29.3 PG (27.0-31.0); MEAN CORPUSCULAR HGB CONC 34.5 g/dL (33.0-36.5); MEAN CORPUSCULAR VOLUME 84.8 FL (78-98); MONOCYTES # (AUTO) 1.4 X10'3 (0-0.9); MONOCYTES % (AUTO) 10.8 % (2-12); NEUTROPHILS # (AUTO) 10.4 X10'3 (1.8-7.7); NEUTROPHILS % (AUTO) 80.4 % (42-75); PLATELET COUNT 300 X10'3 (140-440); RED BLOOD COUNT 4.71 X10'6 (4.70-6.10); RED CELL DISTRIBUTION WIDTH 13.6 % (11.5-14.5); WHITE BLOOD COUNT 12.9 X10'3 (4.5-11.0)
[2024-09-22 05:06] LABS: ALANINE AMINOTRANSFERASE 287 U/L (12-78); ALBUMIN 3.3 G/DL (3.4-5.0); ALBUMIN/GLOBULIN RATIO 1.2 (1.1-1.5); ALKALINE PHOSPHATASE 100 IU/L (20-180); ANION GAP 8 (8-16); ASPARTATE AMINO TRANSFERASE 103 U/L (10-37); BILIRUBIN,TOTAL 2.4 MG/DL (0.1-1.0); BLOOD UREA NITROGEN 4 MG/DL (7-18); BUN/CREATININE RATIO 4.2 (10.0-20.0); CALCIUM 8.6 MG/DL (8.5-10.1); CHLORIDE 104 MMOL/L (99-107); CREATININE 0.95 MG/DL (0.60-1.10); GLUCOSE 121 MG/DL (70-104); MAGNESIUM 1.9 MG/DL (1.5-2.4); POTASSIUM 3.9 MMOL/L (3.5-5.1); SODIUM 139 MMOL/L (135-145); TOTAL CARBON DIOXIDE 27.5 MMOL/L (24-32); TOTAL PROTEIN 6.1 G/DL (6.4-8.2); eCRCL 99 ML/MIN; eGFR > 90 ML/MIN
[2024-09-22 06:00] VITALS: BP 110/66; PULSE 70; TEMP 97.6; O2SAT 99
[2024-09-22 08:00] VITALS: RESP 16; O2SAT 99
--- NOTE | 2024-09-22 10:48 | PATHOLOGY REPORT ---
[facility] [address] [place] [address] SURGICAL PATHOLOGY REPORT CaseNumber: [id number] Surgeon:Herbie Arciniega M.D. CLINICAL INFORMATION CLINICAL INFORMATION: Cholelithiasis. DIAGNOSIS DIAGNOSIS: GALLBLADDER; CHOLECYSTECTOMY - CHOLELITHIASIS. - CHOLESTEROLOSIS. - CHRONIC CHOLECYSTITIS. MICROSCOPIC DESCRIPTION MICROSCOPIC DESCRIPTION: Performed. GROSS DESCRIPTION GROSS DESCRIPTION: Received in a container of formalin labeled with the patient's name, number, and " gallbladder" is an intact gallbladder which measures 8.5 cm long by 2.5 cm in diameter. The serosa is smooth and purple-flanagan. The surgical bed is unremarkable. Sectioning reveals a small amount of viscou s dark green bile and a 1.5 cm aggregate of barakat mulberry stones which measure up to 0.3 cm. The mu cosa is red and granular with scattered yellow flecks present. A discrete mass lesion is not identifi ed. The wall of the gallbladder measures up to 0.4 cm thick. Authors Motivational sections of the neck and wall of the gallbladder are submitted as A1.The time at which the specimen was removed was 1335. The time at which the specimen was placed in formalin was 1340. (lab) Electronically signed by: Oswaldo Pepe, 09/22/2024 10:19:00 AM
[2024-09-22 11:00] VITALS: BP 137/87; PULSE 71; RESP 16; TEMP 97.3; O2SAT 98
[2024-09-22 12:01] VITALS: RESP 16
[2024-09-22] MEDS ORDERED: HYDR-3972 PO (12:13)
--- NOTE | 2024-09-22 22:38 | DISCHARGE SUMMARY ---
Discharge Summary Providers to CC ~ Discharge Summary Admission Diagnosis: Obstructive jaundice, choledocholithiasis Hospital Course DATE OF ADMISSION: 09/18/2024 DATE OF DISCHARGE: 09/22/2024 Discharge Diagnosis\\Comment: Cholecystitis, evaluate for choledocholithiasis, ADHD Operations\\Procedures: Robotic laparoscopic cholecystectomy Consultants: Dr. Herbie Arciniega Surgeon, Dr Serrano international marketing intern Complications: None Condition on DC: Stable New Medications: Hydrocodone Bit/Acetaminophen (Hydrocodon-Acetaminophn 10-325 tablet) 10mg-325mg Tablet 1 TAB PO Q4H PRN for SEVERE PAIN 7-10, #12 TAB Continued Medications: Clonidine HCl (Clonidine HCl) 0.2 Mg Tablet 1 TAB PO HS, TAB 0 Refills Fluoxetine Hcl (Prozac) 10 Mg Capsule 1 CAP PO DAILY, CAP 0 Refills Hydroxyzine Hcl* (Atarax*) 10 Mg Tablet 1 TAB PO HS for anxiety, TAB Lisdexamfetamine Dimesylate (Vyvanse) 30 Mg Capsule 1 CAP PO QAM for 5 Days, #5 CAP 0 Refills Discharge Summary: The patient was admitted by resident physician DINESH Banks, under the supervision of MCKAY Gr MD with the following HPI:"19 years old male with history of ADHD developmental delay anxiety transferred from [facility] to our hospital suspect of of choledocholithiasis. Patient reported had intermittent abdominal pain within last two months, pain became constant and severe about two nights ago, when he visit [facility]. As the package note from [place] patient had right upper quadrant abdominal pain the severity was 10/10, sharp nonradiating. Patient also reported associated nausea but denied any fever. During hospitalization patient reported 2 times vomiting which was nonbloody and content food. Denied any constipation diarrhea, changing in urinary habits." Initially Nehemias Louie international marketing intern assessed that if the bilirubin remained above three he would perform an ERCP otherwise it is less than two he would not perform an ERCP- the following morning the bilirubin was at 2.5- and the MRCP demonstrated possible choledocholithiasis however Dr Serrano elected not to perform a ERCP and Dr. Arciniega performed a laparoscopic robotic cholecystectomy on the morning of the - the patient's bilirubin continued to downtrend the following morning to 2.4 in the liver enzymes remained stable. Dr. Arciniega cleared the patient for discharge the following morning The patient requested some pain medication for discharge and was discharged with [place] 01/3251 tablet every 4 hours p.r.n. severe pain a total of 12 tablets were prescribed. Gen. No acute distress alert and oriented 4 Lungs clear to ascultation bilaterally, no wheezes rales or rhonchi appreciated Heart normal sinus rhythm no murmurs rubs or clicks noted Abdomen soft nontender bowel sounds are normoactive Lower extremities no clubbing cyanosis, nor edema appreciated bilaterally The patient felt ready to be discharged and was medically cleared to be discharged on 09/22/2024 The patient was seen and evaluated on day of discharge. Time spent on discharge 35 minutes *Problems/Diagnosis: (1) Hyperbilirubinemia Total Time Spent on D/C: > 30 Minutes Date of Service: Sep 22, 2024 Billing Provider: SANJUANA MARTINEZ DO Common Visit Codes: 70113-OIW/OBS DISCH DAY >30min SANJUANA MARTINEZ DO Sep 22, 2024 22:38
== END 2024-09-22 15:53 | disposition home or self-care (01) | DRG 263 ==
LOC: SUR 3N 17:00 → UNDOADMIN 17:00 → SUR 3N 19:41
PROVIDERS: ADMIT Family Medicine; ATTEND Nurse Practitioner Family
PROC: 8E0W4CZ Robotic Assisted Procedure of Trunk Region, Percutaneous Endoscopic Approach (ICD-10-PCS; 2024-09-21)
PROC: 0FT44ZZ Resection of Gallbladder, Percutaneous Endoscopic Approach (ICD-10-PCS; principal; 2024-09-21 12:35)
DX: K80.63 Calculus of gallbladder and bile duct with acute cholecystitis with obstruction (principal); F31.9 Bipolar disorder, unspecified; F41.9 Anxiety disorder, unspecified; F90.9 Attention-deficit hyperactivity disorder, unspecified type; F84.0 Autistic disorder
CPT/HCPCS: 36415; 80053; 81003; 82150; 82948; 83690; 83735; 83880; 85025; 85610; 85730; 87040; 87081; A4215; A4618; A6258; A7000; C8901; G0378; J0131; J0360; J1100; J1171; J2003; J2250; J2270; J2405; J2543; J2704; J3010; J3490; J7030; J7120

== ENCOUNTER 2024-10-20 19:45 | Emergency (ER) | payer MEDICAID ==
[~2024-10-20] VITALS: Ht 182.9 cm; Wt 56.0 kg
[~2024-10-20 19:45] MED LIST: CLON0.2T PO; FLUO10CA28 PO; HYDR-3717 PO; HYDR-3972 PO; LISD30CA2 PO
--- NOTE | 2024-10-20 20:55 | Physician Documentation ---
History of Present Illness ~ Chief Complaint: Seizure Stated Complaint: SEIZURE Time Seen by MD: 20:25 Mode of Arrival: EMS, Stretcher HPI 19-year-old male presents with reported three witnessed seizures about 20-30 seconds in length. Seizures occurred yesterday at 10:00 p.m. reportedly patient had 2-3 seizures today with tonic clonic convulsions patient does not have a history of seizures. Patient is postictal and alert Day of Onset: Oct 20, 2024 Medication Reconciliation Allergies: Coded Allergies: strawberry (Verified Allergy, Unknown, 10/20/24) Scheduled Clonidine HCl (Clonidine HCl), 1 TAB PO HS, (Reported) Fluoxetine Hcl (Prozac), 1 CAP PO DAILY, (Reported) Hydroxyzine Hcl* (Atarax*), 1 TAB PO HS, (Reported) Lisdexamfetamine Dimesylate (Vyvanse), 1 CAP PO QAM, (Reported) Scheduled PRN Hydrocodone Bit/Acetaminophen (Hydrocodon-Acetaminophn 10-325 tablet), 1 TAB PO Q4H PRN for SEVERE PAIN 7-10 Past Medical History Patient History: Patient reports no known family medical history. Alcohol Use: None Drug Use: none Physical Exam Vital Signs: Temperature: 98.9, Source: Oral, Heart Rate: 94, Respiratory Rate: 16, BP: 168/111, Pulse Oximetry: 100, Weight: 56.000 Oxygen Flow Rate: 0 Physical Exam General: Alert, no apparent distress. Respiratory: Lungs clear, no respiratory distress. Cardiovascular: Regular rate and rhythm, no murmurs. Neurologic: Oriented x4. Psychiatric: Normal mood and affect. Progress Results/Orders Results/Orders Orders - MEDARDO PEREZ MACHINE ADJUSTER LEADER CASE TRIM Electrocardiogram (10/20/24 ) Ct Head (10/20/24 21:00) Completed Orders - MEDARDO PEREZ MACHINE ADJUSTER LEADER CASE TRIM Urinalysis, Cult If Indicated (10/20/24 20:51) Cbc/Diff (10/20/24 20:51) BMP (10/20/24 20:51) Lipase (10/20/24 20:51) Ct Head (10/20/24 21:00) Levetiracetam Tablet (Keppra Tablet) (10/20/24 21:50) Vital Signs 10/20/24 10/20/24 10/20/24 19:46 19:58 20:35 Temp 98.9 Pulse 86 94 Resp 16 16 16 B/P (MAP) 169/113 168/111 (130) Pulse Ox 100 100 O2 Flow Rate 0 0 Laboratory Tests Test 10/20/24 21:02 10/20/24 21:23 White Blood Count 10.4 Red Blood Count 5.31 Hemoglobin 15.8 Hematocrit 45.6 Mean Corpuscular Volume 85.8 Mean Corpuscular Hemoglobin 29.7 Mean Corpuscular Hemoglobin Concent 34.7 Red Cell Distribution Width 14.2 Platelet Count 286 Mean Platelet Volume 7.7 Neutrophils (%) (Auto) 74.7 Lymphocytes (%) (Auto) 15.1 L Monocytes (%) (Auto) 7.7 Eosinophils (%) (Auto) 1.5 Basophils (%) (Auto) 1.0 Neutrophils # (Auto) 7.8 H Lymphocytes # (Auto) 1.6 Monocytes # (Auto) 0.8 Eosinophils # (Auto) 0.2 Basophils # (Auto) 0.1 CBC Comment Sodium Level 143 Potassium Level 4.2 Chloride Level 107 Carbon Dioxide Level 28.2 Anion Gap 8 Blood Urea Nitrogen 23 H Creatinine 1.00 Estimated GFR/1.73 m2 > 90 BUN/Creatinine Ratio 23.0 H Glucose Level 96 Calcium Level 8.7 Albumin 4.1 Lipase 71 Chemistry Comments Urine Specimen Description Cln catch midstream Urine Color Yellow Urine Clarity Clear Urine pH 6.0 Urine Specific [place] 1.020 Urine Protein Negative Urine Glucose (UA) Negative Urine Ketones Negative Urine Occult Blood Negative Urine Nitrite Negative Urine Bilirubin Negative Urine Urobilinogen 1.0 Urine Leukocyte Esterase Negative Urine Culture Indicated Not ind Volume Urine Centrifuged 10 ml Urine Comment Medical Decision Making Findings Patient's laboratory values, EKG and CT scan all very reassuring with no indication or cause of seizures. Not been postictal or had any further seizures while in the ED as well. Rather, patient has been appropriate alert oriented and has no current medical complaints. Whether or not the patient truly experience seizures is this beautiful based on the video provided to me.. He does meet criteria however for further evaluation in the outpatient setting and I potential potential neurology consultation. I did give him one dose of Keppra while in the ED with advice of a close follow up Differential Dx:Considerations: Include: Hyperventilation, Psychogenic seizure, Due to alcohol withdrawl, Anticonvulsant withdrawl, Due to closed head injury, Due to CVA/TIA, Due to drug ingestion, Due to eclampsia, Due to hypocalcemia, Due to hypoglycemia, Due to hyponatremia, Due to hypoxemia, Idiopathic, Due to mass lesion, Due to meningitis, Syncope, Encephalopathy, Epilepsy-break through, Epilepsy-status, Other Departure Disposition: HOME / SELF CARE / HOMELESS Impression: Primary Impression: Seizure disorder Additional Impression: Alcohol withdrawal syndrome Condition: Stable Discharge Instructions: Seizure, Adult Additional Instructions: Has a directed you a recommend that you follow up with the your primary care for further evaluation of the symptoms that you experienced. Of course if you have any ongoing reported seizures feel free to return to the ED Referrals: NO PRIMARY CARE PROVIDER (PCP) Signature Scribe Signature: g Attestation: Scribed for Medardo Perez Heading Saw Operator by Medardo Contreras NP . 10/20/24 21:59 MEDARDO PEREZ NP Oct 20, 2024 20:55
[2024-10-20 21:19] LABS: MEAN PLATELET VOLUME 7.7 FL (7.4-10.4); RED CELL DISTRIBUTION WIDTH 14.2 % (11.5-14.5)
[2024-10-20 21:32] LABS: CREATININE 1.00 MG/DL (0.60-1.10); TOTAL CARBON DIOXIDE 28.2 MMOL/L (24-32); eCRCL 93 ML/MIN; eGFR > 90 ML/MIN
--- NOTE | 2024-10-20 21:33 | RADIOLOGY REPORT ---
CLINICAL HISTORY: acute seizure TECHNIQUE: Helical imaging carried out from skull base to vertex without intravenous contrast. This e xam was performed according to our departmental dose optimization program. Up-to-date CT equipment an d radiation dose reduction techniques are utilized as appropriate. CTDIVol: 61.74 mGy DLP: 1102.84 mGy-cm WID: COMPARISON: None FINDINGS: The ventricles and subarachnoid spaces are normal in size and configuration. There is no midline ike ft or mass effect. The jay white matter interfaces are maintained. The basal cisterns are patent. Th ere is no evidence of acute intracranial hemorrhage or extra-axial fluid collection. The mastoid air cells and visualized paranasal sinuses are well-aerated aside from mucous retention cysts or polyps i n the bilateral maxillary sinuses. IMPRESSION: No acute intracranial abnormality.
[2024-10-20 21:45] LABS: LEUKOCYTE ESTERASE ,URINE NEGATIVE (Neg); NITRITES, URINE NEGATIVE (Neg); OCCULT BLOOD,URINE NEGATIVE (Neg)
[2024-10-20 21:49] LABS: UA COLLECTION TYPE CLN CATCH MIDSTREAM
[2024-10-20 22:16] VITALS: BP 155/98; PULSE 83; RESP 16; TEMP 98; O2SAT 98
--- NOTE | 2024-10-21 05:23 | ELECTROCARDIOGRAPH REPORT ---
[facility] Test Date: 2024-10-20 Test Time: 21:25:34 Pat Name: GEORGE WEAVER Department: EMERGENCY ROOM Room: Gender: M Private Mortgage Banker Safe: : 2005 Requested By: JERED PEREZ Order Number: [id number] Reading MD: Dr. Alphonso Spann Measurements Intervals [place] Rate: 77 P: 76 RI: 133 QRS: 91 QRSD: 88 T: 57 QT: 366 QTc: 415 Interpretive Statements Sinus rhythm Right atrial enlargement Borderline right axis deviation Borderline Q waves in inferior leads Electronically Signed On 10-21-2024 17:29:[address] Alphonso Spann Please click the below link to view image of tracing.
== END 2024-10-20 22:20 | disposition home or self-care (01) ==
LOC: ER 19:47
DX: G40.909 Epilepsy, unspecified, not intractable, without status epilepticus (principal); F10.239 Alcohol dependence with withdrawal, unspecified; Z79.899 Other long term (current) drug therapy; Y90.9 Presence of alcohol in blood, level not specified
CPT/HCPCS: 36415; 70450; 80048; 81003; 83690; 85025; 93005; 99284

== ENCOUNTER 2025-02-02 16:29 | Emergency (ER) | payer MEDICAID ==
[~2025-02-02] VITALS: Ht 177.8 cm; Wt 65.9 kg
[~2025-02-02 16:29] MED LIST changes: +DOCU-148 PO; +IBUP-860 PO
[2025-02-02 16:36] VITALS: BP 108/64; PULSE 105; TEMP 98.6; O2SAT 100
--- NOTE | 2025-02-02 17:38 | Physician Documentation ---
HPI ~ General Chief Complaint: Tooth Problem Stated Complaint: GUM BLEEDING/MOUTH PAIN Time Seen by MD: 16:42 History of Present Illness HPI Comment Is a 19-year-old male that presents to the emergency department for evaluation of bleeding after tooth extraction approximately 3 hours ago. Bleeding is currently controlled patient has 2 x [address] When the gauze is rem leo bleeding is still controlled. Patient reports pain at the site of extractions. Reports that he took a leave a couple of hours ago. Denies any other symptoms at this time. Medication Reconciliation Allergies: Coded Allergies: strawberry (Verified Allergy, Unknown, 02/02/25) Scheduled Clonidine HCl (Clonidine HCl), 1 TAB PO HS, (Reported) Docusate Sodium (Colace), 1 CAP PO Q12H Fluoxetine Hcl (Prozac), 1 CAP PO DAILY, (Reported) Hydroxyzine Hcl* (Atarax*), 1 TAB PO HS, (Reported) Lisdexamfetamine Dimesylate (Vyvanse), 1 CAP PO QAM, (Reported) Scheduled PRN Hydrocodone Bit/Acetaminophen (Hydrocodon-Acetaminophn 10-325 tablet), 1 TAB PO Q4H PRN for SEVERE PAIN 7-10 Ibuprofen (Ibu), 1 TAB PO Q4HPRN PRN for pain Past Medical History Past Medical History: No Pertinent History Patient History: Patient reports no known family medical history. Smoking Status: Current every day smoker Alcohol Use: None Drug Use: none Review of Systems ROS As stated above in the HPI, otherwise all systems are reviewed and negative. Physical Exam Vital Signs: Temperature: 98.6, Source: Oral, Heart Rate: 105, Respiratory Rate: 18, BP: 108/64, Pulse Oximetry: 100, Weight: 65.910 Physical Exam VITALS: Reviewed and as above. GENERAL: Alert, no apparent distress. HEENT: Normocephalic, atraumatic, PERRL, EOMI, dry mucosa, no erythema, site of tooth extractions appropriate with scant bleeding at this time. MUSCULOSKELETAL No deformities, no edema SKIN: Warm and dry, no rash NEURO: Oriented x4, No motor or sensory deficit PSYCH: Normal mood and affect, no agitation Progress Results/Orders Results/Orders Completed Orders - FATEMEH MAGUIRE Acetaminophen 325mg Tablet (Tylenol Tabl (02/02/25 17:30) Vital Signs 02/02/25 16:36 Temp 98.6 Pulse 105 Resp 18 B/P (MAP) 108/64 Pulse Ox 100 Medical Decision Making Additional information obtaine: N/A Findings Is a 19-year-old male that presents to the emergency department for evaluation of bleeding after tooth extraction approximately 3 hours ago. Bleeding is currently controlled patient has 2 x [address] When the gauze is removed bleeding is still controlled. Patient reports pain at the site of extractions. Reports that he took a leave a couple of hours ago. Denies any other symptoms at this time. Based on presentation physical exam, patient appears to be at a normal phase post tooth extraction. He is currently controlled. Patient has been provided with Tylenol while here in the emergency department he has already taken a leave today. Patient will be discharged with education regarding Tylenol ibuprofen as needed for discomfort ice or heat as tolerated to the cheek for discomfort. Patient will continue with instructions provided by his dentist for post extraction care. Patient will with his primary care provider in 2-3 days. Patient will return to the emergency department if any worsening of his current symptoms or any additional concerning symptoms that we discussed here today i.e. uncontrolled bleeding significantly increased pain fever chills nausea vomiting or any other concerning symptoms that we discussed here today. Differential Dx:Considerations: Include: Alveolar fracture, Alveolar osteitis, ANUG, Facial Cellulitis, Periapical abscess, Peridontal abscess, Post-extraction bleeding, Pulpitis, Tooth avulsion, Tooth eruption, Tooth Fracture, Trigeminal neuralgia, Tooth subluxation, Other Departure Disposition: 01 HOME / SELF CARE / HOMELESS Impression: Primary Impression: Toothache Additional Impressions: History of tooth extraction Pain Discharge Instructions: Dental Pain Additional Instructions: Is a 19-year-old male that presents to the emergency department for evaluation of bleeding after tooth extraction approximately 3 hours ago. Bleeding is currently controlled patient has 2 x [address] When the gauze is removed bleeding is still controlled. Patient reports pain at the site of extractions. Reports that he took a leave a couple of hours ago. Denies any other symptoms at this time. Based on presentation physical exam, patient appears to be at a normal phase post tooth extraction. He is currently controlled. Patient has been provided with Tylenol while here in the emergency department he has already taken a leave today. Patient will be discharged with education regarding Tylenol ibuprofen as needed for discomfort ice or heat as tolerated to the cheek for discomfort. Patient will continue with instructions provided by his dentist for post extraction care. Patient will with his primary care provider in 2-3 days. Patient will return to the emergency department if any worsening of his current symptoms or any additional concerning symptoms that we discussed here today i.e. uncontrolled bleeding significantly increased pain fever chills nausea vomiting or any other concerning symptoms that we discussed here today. Referrals: NO PRIMARY CARE PROVIDER (PCP) Education Educated: Patient Educated regarding: diagnosis, treatment, need for follow up Signature Scribe Signature: A Attestation: Scribed for Fatemeh Maguire by BROOKLYN Wood . 02/02/25 17:38 FATEMEH MAGUIRE Feb 02, 2025 17:38
[2025-02-02 17:58] VITALS: RESP 16
== END 2025-02-02 18:02 | disposition home or self-care (01) ==
LOC: ER 16:29
DX: K08.89 Other specified disorders of teeth and supporting structures (principal); F17.200 Nicotine dependence, unspecified, uncomplicated
CPT/HCPCS: 99283